=== PATIENT | female | born 1995 | race Caucasian/White ===

== ENCOUNTER 2021-06-18 06:33 | Outpatient (CLI) | payer OTHER ==
[~2021-06-18] VITALS: Ht 165.1 cm; Wt 117.5 kg
[2021-06-18 08:46] LABS: HEMOGLOBIN 11.9 gm/dl (12.3-15.3); RED BLOOD COUNT 3.99 M/UL (4.00-5.10); WHITE BLOOD COUNT 13.1 K/UL (4.5-11.0)
[2021-06-18 09:09] LABS: BUN/CREATININE RATIO 15 (0-10)
== END 2021-06-18 14:05 | disposition home or self-care (01) ==
LOC: GENOP 06:33
PROVIDERS: Internal Medicine Pulmonary Disease
DX: O99.891 Other specified diseases and conditions complicating pregnancy (principal); O34.219 Maternal care for unspecified type scar from previous cesarean delivery; O21.2 Late vomiting of pregnancy; R10.9 Unspecified abdominal pain; R19.7 Diarrhea, unspecified; Z3A.27 27 weeks gestation of pregnancy
CPT/HCPCS: 36415; 80053; 81001; 85025; 87086; 96361; 96365; 96367; J2550; J7120